=== PATIENT | male | born 1985 | race African-American/Black ===

== ENCOUNTER 2023-12-20 05:29 | Emergency (ER) | payer BC, SELFPAY ==
[2023-12-20] MEDS ORDERED: EPINEPHrine 1 MG/10 ML Abboject SYRINGE ONE (06:12)
[2023-12-20] MEDS ORDERED: Calcium Chloride 1 GM/10 ML Abboject SYRINGE ONE (06:12)
[2023-12-20] MEDS ORDERED: Etomidate 40 MG (20 mL) VIAL ONE (06:12)
[2023-12-20] MEDS ORDERED: Sodium Bicarb 50 MEQ/50 ML Abboject 8.4% SYRINGE ONE (06:12)
[2023-12-20] MEDS ORDERED: Rocuronium Bromide 10 MG/ML (10ML VIAL) ONE (06:12)
[2023-12-20] MEDS ORDERED: Amiodarone 150 MG/3 ML VIAL ONE (06:12)
== END 2023-12-20 06:14 | disposition expired ==
LOC: ERS 05:29
DX: I46.9 Cardiac arrest, cause unspecified (principal); I10 Essential (primary) hypertension; E11.9 Type 2 diabetes mellitus without complications; F84.0 Autistic disorder
CPT/HCPCS: 31500; 36416; 92950; 93005; J0171; J0282